=== PATIENT | female | born 2000 | race Caucasian/White ===

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

== ENCOUNTER 2018-06-17 12:17 | Emergency (ER) | payer BC ==
[2018-06-17 13:05] VITALS: BP 113/62
--- NOTE | 2018-06-17 14:17 | UC ---
Respiratory Complaint HPI - HPI Summary HPI Summary: Patient c/o Facial pressure, nasal congestion, and sore throat radiating pain to left ear for three weeks. Nasal discharge for five days. Myalgias for two to three days. Patient has tried Advil Cold & Sinus and Nyquil. States she has occasional chills but no fever - History of Current Complaint Chief Complaint: UCGeneralIllness Stated Complaint: SORE THROAT,SINUS COMPLAINT Time Seen by Provider: 06/17/18 13:41 Hx Last Menstrual Period: 06/14/18 Pain Intensity: 8 - Allergies/Home Medications Allergies/Adverse Reactions: Allergies Allergy/AdvReac Type Severity Reaction Status Date / Time Penicillins Allergy Unknown Verified 06/17/18 13:00 Reaction Details Home Medications: Home Medications Albuterol HFA INHALER* [Ventolin HFA Inhaler*] 1 - 2 puff INH Q4H PRN 06/17/18 [ History Confirmed 06/17/18] Fexofenadine (NF) [Anita 180 (NF)] 180 mg PO DAILY 06/17/18 [History Confirmed 06/17/18] Norethindrone-E.estradiol-Iron [Junel Fe 24 1-20 mg-Mcg(24)] 1 tab PO DAILY [History Confirmed 06/17/18] PMH/Surg Hx/FS Hx/Imm Hx Respiratory History: Asthma - Surgical History Surgical History: Yes Surgery Procedure, Year, and Place: T&A, 2007, [place] - Family History Known Family History: Positive: Diabetes Negative: Blood Disorder - Social History Alcohol Use: Weekly Substance Use Type: None Smoking Status (MU): Never Smoked Tobacco Have You Smoked in the Last Year: No Review of Systems Constitutional: Negative ENT: Nasal Discharge, Sinus Congestion, Sinus Pain/Tenderness Respiratory: Cough All Other Systems Reviewed And Are Negative: Yes Physical Exam Triage Information Reviewed: Yes Appearance: Well-Appearing, No Pain Distress, Well-Nourished Vital Signs: Initial Vital Signs Temp 98.3 F 06/17/18 12:58 Pulse 114 06/17/18 12:58 Resp 16 06/17/18 12:58 BP 113/62 06/17/18 12:58 Pulse Ox 100 06/17/18 12:58 Vital Signs Reviewed: Yes Eyes: Positive: Conjunctiva Clear ENT: Positive: Pharynx normal, TMs normal, Sinus tenderness - maxillary tenderness, Uvula midline Neck: Positive: Supple, Nontender, No Lymphadenopathy Respiratory: Positive: Chest non-tender, Lungs clear, Normal breath sounds, No respiratory distress Cardiovascular: Positive: RRR, No Murmur, Pulses Normal, Brisk Capillary Refill Abdomen Description: Positive: Nontender Bowel Sounds: Positive: Present UC Diagnostic Evaluation - Laboratory O2 Sat by Pulse Oximetry: 100 Respiratory Course/Dx - Course Course Of Treatment: patient with sinus pain and tenderness , chills and yellow discharge for 3 weeks, start doxycycline 100mg po bid for 10 days and continue flonase and nasal saline solution. Follow up with PCP in 1 weeek - Differential Dx/Diagnosis Provider Diagnoses: maxillary sinusitis Discharge - Sign-Out/Discharge Documenting (check all that apply): Patient Departure All imaging exams completed and their final reports reviewed: No Studies - Discharge Plan Condition: Stable Disposition: HOME Patient Education Materials: Sinusitis (ED), Doxycycline (By mouth) Referrals: No Primary Care Phys,NOPCP [Primary Care Provider] - - Billing Disposition and Condition Condition: STABLE Disposition: Home
== END 2018-06-17 14:24 | disposition home or self-care (01) ==
LOC: UCCORT 12:17
CPT/HCPCS: 99212; G0463

== ENCOUNTER 2018-09-03 17:46 | Emergency (ER) | payer BC ==
--- NOTE | 2018-09-03 18:10 | UC ---
Throat Pain/Nasal Guillaume HPI - HPI Summary HPI Summary: 18 yo female presents with sinus pain/pressure/congestion for the last 2 weeks. Getting worse over the last week. Pt states she has a history of sinus infections 2-3 times a year. Her last one was about 6 months ago and she was given Doxy - she said this improved her sinus symptoms, but it was hard for her stomach to tolerate. She has been taking pat and using a nasal spray daily with no relief. Denies fever, chills, sore throat, cough. - History of Current Complaint Stated Complaint: SINUS COMPLAINT Time Seen by Provider: 09/03/18 18:10 Hx Obtained From: Patient Hx Last Menstrual Period: 06/14/18 Onset/Duration: Gradual Onset Severity: Moderate Pain Intensity: 6 Pain Scale Used: 0-10 Numeric - Allergies/Home Medications Allergies/Adverse Reactions: Allergies Allergy/AdvReac Type Severity Reaction Status Date / Time Penicillins Allergy Unknown Verified 09/03/18 18:14 Reaction Details PMH/Surg Hx/FS Hx/Imm Hx - Additional Past Medical History Additional PMH: Allergies Respiratory History: Asthma - Surgical History Surgical History: Yes Surgery Procedure, Year, and Place: T&A, 2007, [place] - Family History Known Family History: Positive: Diabetes Negative: Blood Disorder - Social History Occupation: Student Lives: Dormitory/Roommates Alcohol Use: Weekly Substance Use Type: None Smoking Status (MU): Never Smoked Tobacco Have You Smoked in the Last Year: No Review of Systems All Other Systems Reviewed And Are Negative: Yes Constitutional: Positive: Negative Skin: Positive: Negative Eyes: Positive: Negative ENT: Positive: Nasal Discharge, Sinus Congestion, Sinus Pain/Tenderness Respiratory: Positive: Negative Cardiovascular: Positive: Negative Physical Exam - Summary Physical Exam Summary: GENERAL: NAD. WDWN. No pain distress. SKIN: No rashes, sores, lesions, or open wounds. HEENT: Head: AT/NC Eyes: EOM intact. Conjunctiva clear without inflammation or discharge. Ears: Hearing grossly normal. TMs intact, no bulging, erythema, or edema. Nose: Nasal mucosa mildly swollen and erythematous with yellow/ clear discharge. TTP maxillary and frontal sinus. Positive post nasal drip Throat: Posterior oropharynx without exudates, erythema, or tonsillar enlargement. Uvula midline. NECK: Supple. Nontender. No lymphadenopathy. CHEST: CTAB. No r/r/w. No accessory muscle use. Breathing comfortably and in no distress. CV: RRR. Without m/r/g. Pulses intact. NEURO: Alert. PSYCH: Age appropriate behavior. Triage Information Reviewed: Yes Vital Signs: Vital Signs: Temp Pulse Resp BP Pulse Ox 97.2 F 94 16 122/72 98 09/03/18 18:11 09/03/18 18:11 09/03/18 18:11 09/03/18 18:11 09/03/18 18:11 Vital Signs Reviewed: Yes Throat Pain/Nasal Course/Dx - Course Course Of Treatment: Sinusitis - Differential Dx/Diagnosis Provider Diagnosis: Sinusitis Discharge - Sign-Out/Discharge Documenting (check all that apply): Patient Departure All imaging exams completed and their final reports reviewed: No Studies - Discharge Plan Condition: Stable Disposition: HOME Prescriptions: Azithromycin TAB* [Zithromax TAB (Z-SERGEI) 250 mg #6 tabs] 2 tab PO .TODAY, THEN 1 DAILY #1 sergei Patient Education Materials: Sinusitis (ED) Referrals: No Primary Care Phys,NOPCP [Primary Care Provider] - Additional Instructions: If you develop a fever, shortness of breath, chest pain, new or worsening symptoms - please call your PCP or go to the ED. 1) Try taking Mucinex [id number] and keep using your Pat and Nasal spray - Billing Disposition and Condition Condition: STABLE Disposition: Home
[2018-09-03 18:13] VITALS: BP 122/72
== END 2018-09-03 18:25 | disposition home or self-care (01) ==
LOC: UCCORT 17:46
DX: J32.9 Chronic sinusitis, unspecified (principal); Z88.0 Allergy status to penicillin
CPT/HCPCS: 99212; G0463

== ENCOUNTER 2018-12-09 10:48 | Emergency (ER) | payer BC ==
[2018-12-09 12:24] VITALS: BP 116/59
--- NOTE | 2018-12-09 12:35 | UC ---
Back Pain HPI - HPI Summary HPI Summary: Fall down several steps yesterday afternoon. They were slippery. She has isolated low back pain and left thenar eminence pain. NO numbness or weakness anywhere. No prior medical problems. Left handed. No hematuria. - History of Current Complaint Chief Complaint: UCUpperExtremity Stated Complaint: L HAND INJURY Time Seen by Provider: 12/09/18 12:19 Hx Obtained From: Patient Hx Last Menstrual Period: 11/21/18 Onset/Duration: Sudden Onset, Lasting Days Timing: Constant, Lasting Days Severity Initially: Severe Severity Currently: Moderate Pain Intensity: 5 Back Pain: Is Discrete @ - back and hand. Character: Aching Aggravating Factor(s): Movement, Lifting, Bending Alleviating Factor(s): Rest, Position Associated Signs And Symptoms: Positive: Swelling, Bruising - of the hand.. Negative: Weakness, Numbness, Tingling, Abdominal Pain, Flank Pain, Bladder Incontinence, Bowel Incontinence - Allergies/Home Medications Allergies/Adverse Reactions: Allergies Allergy/AdvReac Type Severity Reaction Status Date / Time Penicillins Allergy Unknown Verified 12/09/18 12:19 Reaction Details Home Medications: Home Medications Fluticasone NASAL SPRAY 50MCG* [Flonase NASAL SPRAY 50MCG*] 2 spray BOTH NARES DAILY PRN 12/09/18 [History Confirmed 12/09/18] PMH/Surg Hx/FS Hx/Imm Hx Previously Healthy: Yes - Surgical History Surgical History: Yes Surgery Procedure, Year, and Place: T&A, 2007, [place] - Family History Known Family History: Positive: Diabetes, Non-Contributory Negative: Blood Disorder - Social History Occupation: Student Alcohol Use: Weekly Substance Use Type: None Smoking Status (MU): Never Smoked Tobacco Have You Smoked in the Last Year: No Review of Systems All Other Systems Reviewed And Are Negative: Yes Skin: Positive: Bruising Musculoskeletal: Positive: Arthralgia Physical Exam Triage Information Reviewed: Yes Appearance: Well-Appearing - comfortable appearing. Easily changes position., No Pain Distress, Well-Nourished Vital Signs: Initial Vital Signs Temp 98.2 F 12/09/18 12:20 Pulse 92 12/09/18 12:20 Resp 15 12/09/18 12:20 BP 116/59 12/09/18 12:20 Pulse Ox 100 12/09/18 12:20 Vital Signs Reviewed: Yes Eyes: Positive: Conjunctiva Clear ENT: Positive: Normal ENT inspection, Pharynx normal Neck: Positive: Supple, Nontender, No Lymphadenopathy. Negative: Nuchal Rigidity Respiratory Exam: Normal Respiratory: Positive: Lungs clear, Normal breath sounds, No respiratory distress, No accessory muscle use. Negative: Respiratory distress, Decreased breath sounds, Crackles, Rhonchi Cardiovascular: Positive: No Murmur, Pulses Normal Abdomen Description: Positive: Nontender, No Organomegaly, Soft. Negative: CVA Tenderness (R), CVA Tenderness (L), Distended, Guarding Musculoskeletal Exam: Other - No bruising of the head, neck, back, flank. THere is full rom of the neck and no spine percussion tenderness until we get to L5. She ambulates to x ray without any obvious pain or limp. Left hand full rom and strength. No elbow, distal radius, or snuff box tenderness. Neurological: Positive: Alert, Muscle Tone Normal. Negative: Fatigued, Lethargic, Unresponsive Psychological: Positive: Age Appropriate Behavior Skin: Negative: Rashes Diagnostics - Radiology No standard instances Radiology Interpretation Completed By: ED Physician, Radiologist Summary of Radiographic Findings: no fx. Back Pain Course/Dx - Course Course Of Treatment: symptomatic care. - Differential Dx/Diagnosis Provider Diagnosis: Contusion, back, Contusion of hand, left Discharge - Sign-Out/Discharge Documenting (check all that apply): Patient Departure All imaging exams completed and their final reports reviewed: Yes - Discharge Plan Condition: Good Disposition: HOME Patient Education Materials: Contusion in Adults (ED) Referrals: No Primary Care Phys,NOPCP [Primary Care Provider] - - Billing Disposition and Condition Condition: GOOD Disposition: Home
== END 2018-12-09 13:12 | disposition home or self-care (01) ==
LOC: UCCORT 10:48
DX: S30.0XXA Contusion of lower back and pelvis, initial encounter (principal); S60.222A Contusion of left hand, initial encounter; Z88.0 Allergy status to penicillin; W01.0XXA Fall on same level from slipping, tripping and stumbling without subsequent striking against object, initial encounter; Y92.9 Unspecified place or not applicable
CPT/HCPCS: 72100; 99211; G0463

== ENCOUNTER 2019-02-12 07:08 | Emergency (ER) | payer BC ==
[2019-02-12 07:20] VITALS: BP 120/68
--- NOTE | 2019-02-12 07:39 | UC ---
Skin Complaint HPI - HPI Summary HPI Summary: infected nipple piercing x 2 days , the area is red swollen , tender, yellow discharge had the nipple piercing for the past 2 years , never had a problem no fever, no chills, - History of Current Complaint Chief Complaint: UCSkin Time Seen by Provider: 02/12/19 07:28 Stated Complaint: PIERCING CONCERN Hx Obtained From: Patient Hx Last Menstrual Period: January 13 ?: No Onset/Duration: Gradual Onset, Lasting Days - 2, Still Present Timing: Constant Onset Severity: Moderate Current Severity: Severe Pain Intensity: 8 Location: Other - bilateral niples Character: Swelling, Pain, Redness, Painful Aggravating Factor(s): Touch Alleviating Factor(s): Nothing Associated Signs & Symptoms: Positive: Drainage, Tenderness. Negative: Nausea, Vomiting, Numbness, Weakness, Fever, Chills, Red Streaks Related History: Foreign Body - nipple piercing - Allergy/Home Medications Allergies/Adverse Reactions: Allergies Allergy/AdvReac Type Severity Reaction Status Date / Time Penicillins Allergy Unknown Verified 02/12/19 07:20 Reaction Details PMH/Surg Hx/FS Hx/Imm Hx Previously Healthy: Yes - Surgical History Surgical History: Yes Surgery Procedure, Year, and Place: T&A, 2007, [place] - Family History Known Family History: Positive: Diabetes, Non-Contributory Negative: Blood Disorder - Social History Alcohol Use: Weekly Substance Use Type: None Smoking Status (MU): Never Smoked Tobacco Have You Smoked in the Last Year: No Review of Systems All Other Systems Reviewed And Are Negative: Yes Constitutional: Positive: Negative Eyes: Positive: Negative ENT: Positive: Negative Is Patient Immunocompromised?: No Physical Exam Triage Information Reviewed: Yes Appearance: Well-Appearing, No Pain Distress, Well-Nourished Vital Signs: Initial Vital Signs Temp 97.5 F 02/12/19 07:14 Pulse 88 02/12/19 07:14 Resp 18 02/12/19 07:14 BP 120/68 02/12/19 07:14 Pulse Ox 100 02/12/19 07:14 Vital Signs Reviewed: Yes Eye Exam: Normal Eyes: Positive: Conjunctiva Clear ENT: Positive: Normal ENT inspection, Hearing grossly normal, Pharynx normal Neck exam: Normal Neck: Positive: Supple Respiratory: Positive: Chest non-tender, Lungs clear, Normal breath sounds, No respiratory distress Cardiovascular: Positive: RRR, No Murmur, Pulses Normal Skin: Positive: Other - bilateral breasts : + nipple piercing bilatera, + erythema, swelling , tender to touch, mild yellow discharge the piercings were removed by twisting the piercing , no anesthesia was used Course/Dx - Diagnoses Provider Diagnosis: Infected pierced nipple Discharge - Sign-Out/Discharge Documenting (check all that apply): Patient Departure All imaging exams completed and their final reports reviewed: No Studies - Discharge Plan Condition: Stable Disposition: HOME Prescriptions: Sulfamethox/Trimethoprim DS* [Bactrim DS 800/160 TAB*] 1 tab PO BID #20 tab Patient Education Materials: Cellulitis (ED) Referrals: No Primary Care Phys,NOPCP [Primary Care Provider] - 7 Days - Billing Disposition and Condition Condition: STABLE Disposition: Home
== END 2019-02-12 07:39 | disposition home or self-care (01) ==
LOC: UCCORT 07:08
DX: N61.0 Mastitis without abscess (principal); Z88.0 Allergy status to penicillin
CPT/HCPCS: 99212; G0463

== ENCOUNTER 2019-07-01 09:26 | Emergency (ER) | payer BC ==
--- OUTSIDE RECORDS SUMMARY | 2019-07-01 10:55 | XMS REPORT | Continuity of Care Document ---
:2000 External Reference #:[id number] Author Name Felipe Vazquez M.D. Address [address] [place] [address] Problems Active Problems Provider Date Asthma without status asthmaticus Felipe Vazquez M.D. Onset: 06/13/2019 Allergic rhinitis due to pollen Felipe Vazquez M.D. Onset: 06/13/2019 Social History Type Date Description Comments Sex Unknown ETOH Use Drinks 1 Alcoholic Beverage Per Week ETOH Use Occasionally consumes alcohol ETOH Use Rarely consumes beer ETOH Use Rarely consumes liquor Recreational Drug Use Never Used Drugs Allergies, Adverse Reactions, Alerts Active Allergies Reaction Severity Comments Date Penicillin reaction as child 06/13/2019 Medications Active Medications SIG Qnty Indications Ordering Provider Date Fluticasone Inhale 2 [place] By Unknown Propionate Intranasal Route 2 50mcg/Act Times Every Day In Suspension Each Nostril Advair HFA Inhale 2 Puffs By Unknown Mouth Every 12 115-21mcg/Act Aerosol Hours Fe 24 Take 1 Tablet By Unknown Oral Route Every 1-20mg-mcg(24) Day Tablets Fexofenadine HCL 1 by mouth every Unknown 180mg day Tablets Immunizations Description No Information Available Vital Signs Date Vital Result Comment 06/13/2019 8:55am Height 64 inches 5'4" Weight 141.00 lb Weight 63.958 kg Respiratory Rate 16 /min Heart Rate 90 /min O2 % BldC Oximetry 97 % BP Systolic 102 mmHg BP Diastolic 64 mmHg BMI (Body Mass Index) 24.2 kg/m2 Results Description No Information Available Procedures Description No Information Available Medical Devices Description No Information Available Encounters Type Date Location Provider Dx Diagnosis Office Visit 06/13/2019 [facility] Felipe Vazquez M.D. J30.1 Allergic rhinitis 9:00a due to pollen J45.998 Other asthma Assessments Date Code Description Provider 06/13/2019 J30.1 Allergic rhinitis due to pollen Felipe Vazquez M.D. 06/13/2019 J45.998 Other asthma Felipe Vazquez M.D. Plan of Treatment No Information Available Functional Status Description No Information Available Mental Status Description No Information Available Referrals Description No Information Available
[2019-07-01 11:13] VITALS: BP 112/70
--- NOTE | 2019-07-01 11:42 | UC ---
Throat Pain/Nasal Guillaume HPI - HPI Summary HPI Summary: 18-year-old female comes in with a chief complaint of upper respiratory tract infection symptoms for 2 weeks. She has sore throat initially been having a runny nose her rhinorrhea is green. She has pain in the maxillary sinuses. She does have a history of asthma and she used her albuterol couple days ago which did help. Also been using an allergy nasal spray which is not helping. She is coming in because the duration of the symptoms and not getting any better. - History of Current Complaint Chief Complaint: UCRespiratory Stated Complaint: SINUSES Time Seen by Provider: 07/01/19 11:06 Hx Last Menstrual Period: 06/05/19 Pain Intensity: 6 - Allergies/Home Medications Allergies/Adverse Reactions: Allergies Allergy/AdvReac Type Severity Reaction Status Date / Time Penicillins Allergy Unknown Verified 07/01/19 11:05 Reaction Details Home Medications: Home Medications Albuterol HFA INHALER* [Ventolin HFA Inhaler*] 2 puff INH Q4H PRN 07/01/19 [ History Confirmed 07/01/19] Norethindrone-E.estradiol-Iron [Microgestin 24 Fe 1 mg-20 Mcg] 1 each PO DAILY 07/01/19 [History Confirmed 07/01/19] PMH/Surg Hx/FS Hx/Imm Hx Previously Healthy: Yes Respiratory History: Asthma - Surgical History Surgical History: Yes Surgery Procedure, Year, and Place: T&A, 2007, [place]. [place] PROCEDURE OF SINUSES - Family History Known Family History: Positive: Diabetes, Non-Contributory Negative: Blood Disorder - Social History Alcohol Use: Weekly Substance Use Type: None Smoking Status (MU): Never Smoked Tobacco Have You Smoked in the Last Year: No Review of Systems All Other Systems Reviewed And Are Negative: Yes Constitutional: Positive: Negative Skin: Positive: Negative Eyes: Positive: Negative ENT: Positive: Sore Throat, Nasal Discharge, Sinus Congestion, Sinus Pain/ Tenderness Respiratory: Positive: Negative Cardiovascular: Positive: Negative Gastrointestinal: Positive: Negative Motor: Positive: Negative Neurovascular: Positive: Negative Musculoskeletal: Positive: Negative Neurological: Positive: Negative Psychological: Positive: Negative Is Patient Immunocompromised?: No Physical Exam Triage Information Reviewed: Yes Appearance: No Pain Distress, Well-Nourished, Ill-Appearing - MILD Vital Signs: Initial Vital Signs Temp 98.7 F 07/01/19 11:06 Pulse 101 07/01/19 11:06 Resp 20 07/01/19 11:06 BP 112/70 07/01/19 11:06 Pulse Ox 99 07/01/19 11:06 Vital Signs Reviewed: Yes Eye Exam: Normal Eyes: Positive: Conjunctiva Clear ENT: Positive: Pharyngeal erythema, Nasal congestion, TMs normal, Sinus tenderness Neck: Positive: Supple Respiratory: Positive: Lungs clear, Normal breath sounds, No respiratory distress Cardiovascular: Positive: RRR Musculoskeletal: Positive: Strength Intact, ROM Intact Neurological: Positive: Muscle Tone Normal Psychological: Positive: Age Appropriate Behavior Skin Exam: Normal Throat Pain/Nasal Course/Dx - Differential Dx/Diagnosis Provider Diagnosis: Sinusitis Discharge ED - Sign-Out/Discharge Documenting (check all that apply): Patient Departure All imaging exams completed and their final reports reviewed: No Studies - Discharge Plan Condition: Stable Disposition: HOME Prescriptions: Cefdinir [Cefdinir 300 MG CAP] 300 mg PO BID #20 cap Patient Education Materials: Sinusitis (ED) Referrals: [facility] [Outside] Additional Instructions: FOLLOW UP WITH YOUR DOCTOR IF NOT COMPLETELY IMPROVED. GET RECHECKED SOONER IF WORSE OR ANY QUESTIONS OR CONCERNS. - Billing Disposition and Condition Condition: STABLE Disposition: Home
== END 2019-07-01 11:47 | disposition home or self-care (01) ==
LOC: UCCORT 09:26
DX: J32.9 Chronic sinusitis, unspecified (principal); Z88.0 Allergy status to penicillin
CPT/HCPCS: 99212; G0463

== ENCOUNTER 2019-12-02 16:21 | Emergency (ER) | payer BC ==
[2019-12-02 17:58] VITALS: BP 106/68
--- NOTE | 2019-12-02 18:02 | UC ---
Lower Extremity/Ankle HPI - HPI Summary HPI Summary: 19-year-old female presenting with left ankle pain since yesterday when she fell down the stairs. Denies swelling or decreased range of motion. Does note some mild bruising. Also notes bruising of her right upper thigh and above her right hip. Denies any pain in those areas. Patient states the ankle pain is worse and radiates up the haines with weightbearing and ambulating. Denies numbness and tingling. - History of Current Complaint Stated Complaint: L ANKLE INJ Hx Obtained From: Patient Hx Last Menstrual Period: 11/13/18 Pain Intensity: 7 Pain Scale Used: 0-10 Numeric - Allergies/Home Medications Allergies/Adverse Reactions: Allergies Allergy/AdvReac Type Severity Reaction Status Date / Time Penicillins Allergy Unknown Verified 12/02/19 17:50 Reaction Details Home Medications: Home Medications Albuterol HFA INHALER* [Ventolin HFA Inhaler*] 2 puff INH Q4H PRN 07/01/19 [ History Confirmed 12/02/19] Ibuprofen TAB* [Advil TAB*] 400 mg PO Q6H PRN 12/02/19 [History Confirmed ] Norethindrone-E.estradiol-Iron [Junel Fe 24 1-20 mg-Mcg(24)] 1 tab PO DAILY 11/21 [History Confirmed 12/02/19] PMH/Surg Hx/FS Hx/Imm Hx Previously Healthy: Yes - Surgical History Surgical History: Yes Surgery Procedure, Year, and Place: T&A, 2007, [place]. [place] PROCEDURE OF SINUSES - Family History Known Family History: Positive: Diabetes, Non-Contributory Negative: Blood Disorder - Social History Alcohol Use: Weekly Substance Use Type: None Smoking Status (MU): Never Smoked Tobacco Have You Smoked in the Last Year: No Review of Systems All Other Systems Reviewed And Are Negative: No Constitutional: Positive: Negative Skin: Positive: Bruising - left ankle Respiratory: Positive: Negative Cardiovascular: Positive: Negative Musculoskeletal: Positive: Arthralgia - left ankle. Negative: Decreased ROM, Edema Neurological/Mental Status: Positive: Negative. Negative: Paresthesia, Numbness Physical Exam - Summary Physical Exam Summary: Vital Signs Reviewed: Yes A+Ox3, no distress Eyes: Conjunctiva Clear ENT: Hearing grossly normal neck: supple Respiratory: Positive: No respiratory distress, No accessory muscle use Cardiovascular: skin color reflect adequate perfusion Musculoskeletal Exam: CALDERON x 4 without difficulty, +minimal TTP of anterolateral left ankle, no edema, no erythema or ecchymosis, ROM intact, strength intact, sensation grossly intact Neurological: Positive: Alert, ambulatory without difficulty Psychological: Positive: age appropriate behavior Skin: Positive: no rash, no ecchymosis Vital Signs: Initial Vital Signs Temp 98.7 F 12/02/19 17:52 Pulse 81 12/02/19 17:52 Resp 16 12/02/19 17:52 BP 106/68 12/02/19 17:52 Pulse Ox 100 12/02/19 17:52 Diagnostics - Radiology left ankle Radiology Interpretation Completed By: ED Physician Summary of Radiographic Findings: neg fx Lower Extremity Course/Dx - Course Course Of Treatment: Discussed initial negative radiograph read with patient. Informed her that the final report is obtained in the morning and she will be notified with any abnormalities. I instructed to continue with rest, ice, and elevation. I also provided the patient with an ankle brace. Instructed to follow up with sports medicine if symptoms not improving in 1-2 weeks. Patient voiced understanding and agreed with treatment plan. - Differential Dx/Diagnosis Differential Diagnosis/HQI/PQRI: Contusion, Fracture (Closed), Sprain, Strain Provider Diagnosis: Sprain of ankle, left Discharge ED - Sign-Out/Discharge Documenting (check all that apply): Patient Departure All imaging exams completed and their final reports reviewed: No - Discharge Plan Condition: Stable Disposition: HOME Patient Education Materials: Ankle Sprain (ED) Referrals: [facility] [Outside] Additional Instructions: As discussed, your radiograph was reviewed by the provider that treated you tonight. It will be read by a radiologist tomorrow morning. If there is a finding other than that discussed with you today, you will receive a call from a care provider. Rest, ice, and elevate the ankle to help alleviate pain and swelling. You may also use the ankle brace for support. Use over the counter pain medications as directed for pain relief. Refrain from strenuous physical activity until pain has fully resolved. Follow up with the orthopedic referral listed below if pain does not improve within 1-2 weeks. - Billing Disposition and Condition Condition: STABLE Disposition: Home - Attestation Statements Provider Attestation: This patient was not seen by me. I was available for consult. Chart reviewed. KIRK
--- NOTE | 2019-12-03 08:12 | UC ---
- Progress Note Progress Note: xray report left ankle : IMPRESSION: #. No acute radiographic abnormality. Course/Dx - Diagnoses Provider Diagnoses: Sprain of ankle, left Discharge ED - Sign-Out/Discharge Documenting (check all that apply): Patient Departure All imaging exams completed and their final reports reviewed: Yes - Discharge Plan Condition: Stable Disposition: HOME Patient Education Materials: Ankle Sprain (ED) Referrals: [facility] [place] [Outside] Additional Instructions: As discussed, your radiograph was reviewed by the provider that treated you tonight. It will be read by a radiologist tomorrow morning. If there is a finding other than that discussed with you today, you will receive a call from a care provider. Rest, ice, and elevate the ankle to help alleviate pain and swelling. You may also use the ankle brace for support. Use over the counter pain medications as directed for pain relief. Refrain from strenuous physical activity until pain has fully resolved. Follow up with the orthopedic referral listed below if pain does not improve within 1-2 weeks. - Billing Disposition and Condition Condition: STABLE Disposition: Home
== END 2019-12-02 18:41 | disposition home or self-care (01) ==
LOC: UCCORT 16:21
DX: S93.402A Sprain of unspecified ligament of left ankle, initial encounter (principal); Z88.0 Allergy status to penicillin; W10.9XXA Fall (on) (from) unspecified stairs and steps, initial encounter; Y92.9 Unspecified place or not applicable
CPT/HCPCS: 99212; G0463